=== PATIENT | female | born 1975 | race African-American/Black ===

== ENCOUNTER 2019-03-13 20:49 | Emergency (ER) | payer SELFPAY ==
[~2019-03-13] VITALS: Ht 165.1 cm; Wt 86.2 kg
--- NOTE | 2019-03-13 21:03 | NUR ---
ED Nurse Note: Pt came with wheelchair c/o RT lower leg and RT ankle pain s/p falling down stairs at 1700. Pt stated 6/10 pain, unable to move ankle side to side. Able to move toes. No SOB. VSS.
[2019-03-13] MEDS ORDERED: Acetaminophen 500mg (ES) tab ORAL ONE (21:15)
--- NOTE | 2019-03-13 21:17 | NUR ---
ED Nurse Note: Pt taken for xray.
--- NOTE | 2019-03-13 22:45 | NUR ---
ED Nurse Note: Xray done at bedside.
--- NOTE | 2019-03-13 22:54 | Diagnostic Imaging Report ---
Indication: Foot Pain Comparison: None Findings: 3 views of the right foot were obtained. No acute fractures, malalignment, erosions or periostitis are identified. Suggestion of mild degenerative arthritis involving the interphalangeal joints. Impression: No acute findings.
--- NOTE | 2019-03-13 22:55 | Diagnostic Imaging Report ---
Indication: right leg pain Comparison: None Findings: Two views of the right tibia and fibula were obtained. No acute fracture, malalignment, or periosteal reaction are identified. There is a mild the spurring at involving the knee joint. Mild osteophytes also noted the in the area of the syndesmosis just above the ankle. Findings are degenerative in nature. Soft tissues are unremarkable. Impression: No acute injury
--- NOTE | 2019-03-13 23:46 | Diagnostic Imaging Report ---
Indication: Right knee pain. Injury 2 views of the right knee were obtained. Findings: No acute fracture, malalignment, or joint effusion are identified. Joint space is relatively well-maintained. Marginal osteophytes are demonstrated consistent with mild arthrosis. Bone mineralization is within normal limits for age. Impression: Mild osteoarthritis
--- NOTE | 2019-03-14 00:18 | Emergency Room Report ---
History of Present Illness General Chief Complaint: Lower Extremity Injury Source: Patient Present Illness HPI 43-year-old female presents with right ankle, right knee pain, patient fell down stairs, she states her leg got caught, no LOC, patient did not hit her head she endorses pain with movement alleviated with rest, severity is mild, she endorses a deep ache. Patient was able to ambulate, but she does not want to put weight on the ankle or foot. Allergies: Coded Allergies: No Known Allergies (Unverified , 03/13/19) Patient History Past Medical History: see triage record Last Menstrual Period: 01/18/19 Now: No Reviewed Nursing Documentation: PMH: Agreed; PSxH: Agreed Nursing Documentation-PMH Past Medical History: No Stated History Review of Systems All Other Systems: negative except mentioned in HPI Physical Exam Vital Signs Date Time Temp Pulse Resp B/P (MAP) Pulse Ox O2 Delivery O2 Flow Rate FiO2 03/13/19 20:59 98.2 75 16 125/74 (91) 98 Room Air Sp02 EP Interpretation: reviewed, normal General Appearance: well appearing, no apparent distress, alert Head: normocephalic, atraumatic Eyes: bilateral eye PERRL, bilateral eye EOMI ENT: uvula midline, moist mucus membranes Neck: supple, thyroid normal, supple/symm/no masses Musculoskeletal: normal inspection, other - Right ankle, tender to palpation, patient is able to plantar dorsiflex the ankle, 5 out of 5 strength, 2+ PT DP, anterior posterior drawer, valgus varus stress of the right knee negative, no effusion no swelling patient is tender Neurologic: alert, oriented x3 Psychiatric: mood/affect normal Skin: no rash, warm/dry Procedures Splinting Splinting : Consent: Verbal Location: RIGHT LOWER EXT Splint: posterior long Pre-Proc Neuro Vasc Exam: normal Post-Proc Neuro Vasc Exam: normal Patient Tolerated: Well Complications: None Medical Decision Making Diagnostic Impression: Primary Impression: Injury of lower extremity Qualified Codes: S89.91XA - Unspecified injury of right lower leg, initial encounter ER Course 43-year-old female presents with atypical injury of the right lower extremity, possible differential includes fracture, contusion, versus sprain strain Attempted to provide knee immobilizer, her leg was too big for the knee immobilizer, will provide posterior long splint, counseled patient to follow-up with orthopedics, low suspicion for fracture however x-rays have been negative, patient is still complaining objective pain will provide crutches disposition home with return precautions and orthopedic follow-up, neurovascular exam is unremarkable Preliminary Findings Only See Final Report For Complete Findings FILM RIGHT TIB/FIB: No fracture or malalignment. Mild to moderate degenerative changes in the knee. Osseous spur along the posterior malleolus. Radiologist: Chino Humphrey MD Study ready at 22:30 and initial results transmitted at 22:54 *This report constitutes a preliminary interpretation only. Non-acute findings felt to be unrelated to the clinical presentation may not be discussed in this report. The study will be interpreted and a final report will be generated by the local Radiologist the following shift. To reach the hospital radiology department call [phone]. Preliminary Findings Only See Final Report For Complete Findings FILM RIGHT KNEE: Moderate tricompartmental osteoarthritis. No fracture or malalignment. Trace joint effusion. Radiologist: Chino Humphrey MD Study ready at 23:30 and initial results transmitted at 23:46 Preliminary Findings Only See Final Report For Complete Findings FILM RIGHT FOOT: No fracture or malalignment. The joint spaces are preserved. Unremarkable appearance of the soft tissues. Radiologist: Chino Humphrey MD Study ready at 22:30 and initial results transmitted at 22:53 Last Vital Signs Date Time Temp Pulse Resp B/P (MAP) Pulse Ox O2 Delivery O2 Flow Rate FiO2 03/13/19 22:13 98.2 03/13/19 20:59 75 16 125/74 (91) 98 Room Air Disposition: HOME, SELF-CARE Condition: Stable Referrals: NOT CHOSEN IPA/,REFERRING (PCP) Orthopedic Urgent Care Patient Instructions: Ankle Sprain, Foot Sprain, Knee Sprain Additional Instructions: The patient was provided with discharge instructions, notified to follow-up with a primary care doctor and or specialist in the next 24-48 hours, and to return to the ED if they have worsening of their symptoms. Please note that this report is being documented using [employer] technology. This can lead to erroneous entry secondary to incorrect interpretation by the dictating instrument. Cristhian Bermeo MD Mar 14, 2019 00:18
[2019-03-14] MEDS ORDERED: ACETAMINOPHEN325 M1 ORAL (00:19)
[2019-03-14 00:43] VITALS: BP 125/74
--- NOTE | 2019-03-14 00:43 | NUR ---
ED Nurse Note: Pt cleared by ERMD for discharge. DC instructions/prescription was given and explained to pt and verbalized understanding of teachings. All medical deviecs such as ID band removed. Pt is AAO x4, ambulatory and left with all personal belongings.
== END 2019-03-14 00:43 | disposition home or self-care (01) ==
LOC: EMR 21:20
DX: S89.91XA Unspecified injury of right lower leg, initial encounter (principal); M17.11 Unilateral primary osteoarthritis, right knee; M25.771 Osteophyte, right ankle; W10.9XXA Fall (on) (from) unspecified stairs and steps, initial encounter; Y92.9 Unspecified place or not applicable
CPT/HCPCS: 29505; 99284